=== PATIENT | female | born 2000 | race Caucasian/White ===

== ENCOUNTER 2021-12-11 14:30 | Observation (INO) ==
[2021-12-11] MEDS ORDERED: Metoclopramide 10 MG/2 ML VIAL IVP PRN (15:33)
[2021-12-11] MEDS: Ringers Solution, Lactated 1,000 ML IVC SCH (16:08)
[2021-12-11] MEDS: Ondansetron 4 MG/2 ML VIAL IVP PRN (17:13)
[2021-12-11 22:11] VITALS: O2SAT 100
[2021-12-11] MEDS: Acetaminophen 325 MG TABLET PO PRN (22:26)
[2021-12-12] MEDS: Ringers Solution, Lactated 1,000 ML IVC SCH ×2 (00:15→07:31)
[2021-12-12] MEDS: Ondansetron 4 MG/2 ML VIAL IVP PRN (07:31)
[2021-12-12] MEDS: Acetaminophen 325 MG TABLET PO PRN (07:32)
[2021-12-12 07:40] VITALS: BP 100/60; PULSE 62; TEMP 97.9
== END 2021-12-12 10:35 | disposition home or self-care (01) ==
LOC: 1NENUPED
PROVIDERS: ADMIT Student in an Organized Health Care Education/Training Program; ATTEND Student in an Organized Health Care Education/Training Program